=== PATIENT | male | born 1995 | race Caucasian/White ===

== ENCOUNTER 2019-02-27 12:53 | Emergency (ER) | payer OTHER ==
[~2019-02-27] VITALS: Ht 177.8 cm; Wt 127.0 kg
--- NOTE | 2019-02-27 13:10 | NUR ---
pt assessed, c/o dysuria and cloudy urine x 1 day, denies fevers or new sexual contacts. Pt report he also has had RLQ pain x 3 days with associated nausea. Denies vomiting or diarrhea. NAD. Ambulatory. Will cont to monitor
[2019-02-27] MEDS ORDERED: KETOROLAC 30 MG/1 ML ONE (13:15)
[2019-02-27 13:27] LABS: MICROSCOPIC NOT IND
[2019-02-27] MEDS ORDERED: KETOROLAC 30 MG/1 ML IM ONE (13:30)
[2019-02-27 13:31] LABS: CULTURE INDICATED? NO
[2019-02-27 13:32] LABS: BASOPHILS # (AUTO) 0.02 x10^3/uL (0-0.1); BASOPHILS % (AUTO) 0 % (0-1); EOSINOPHILS # (AUTO) 0.07 x10^3/uL (0-0.4); EOSINOPHILS % (AUTO) 1 % (1-7); LYMPHOCYTES # (AUTO) 2.08 x10^3/uL (1-3.4); LYMPHOCYTES % (AUTO) 28 % (22-44); MD NO; MEAN CORPUSCULAR HEMOGLOBIN 28.8 pg (27.5-34.5); MEAN CORPUSCULAR HGB CONC 32.8 g/dL (33.2-36.2); MEAN CORPUSCULAR VOLUME 87.8 fL (81-97); MEAN PLATELET VOLUME 9.7 fL (7.4-10.4); MONOCYTES # (AUTO) 0.55 x10^3/uL (0.2-0.8); MONOCYTES % (AUTO) 7 % (2-9); NEUTROPHILS # (AUTO) 4.76 x10^3/uL (1.8-6.8); NEUTROPHILS % (AUTO) 64 % (42-75); PLATELET COUNT 281 x10^3/uL (130-400); RED BLOOD COUNT 5.15 x10^6/uL (4.38-5.82); RED CELL DISTRIBUTION WIDTH 12.9 % (9.4-14.8)
[2019-02-27 13:43] LABS: ALBUMIN 4.3 g/dL (3.4-5.0); ANION GAP 5 mmol/L (5-15); CALCIUM 9.2 mg/dL (8.5-10.1); CHLORIDE 109 mmol/L (98-107)
[2019-02-27 13:47] LABS: ALANINE AMINOTRANSFERASE 58 U/L (12-78); ALKALINE PHOSPHATASE 80 U/L (45-117); BILIRUBIN,TOTAL 0.3 mg/dL (0.2-1.0); CREATININE 0.93 mg/dL (0.7-1.3); TOTAL PROTEIN 7.6 g/dL (6.4-8.2)
--- NOTE | 2019-02-27 14:40 | NUR ---
ROUNDED ON PT, NO NEEDS AT THIS TIME
[2019-02-27] MEDS ORDERED: CEFTRIAXONE 250 MG ONE (15:15)
[2019-02-27] MEDS ORDERED: AZITHROMYCIN 500 MG TABLET ONE (15:15)
[2019-02-27] MEDS ORDERED: AZITHROMYCIN 500 MG TABLET PO ONE (15:30)
[2019-02-27] MEDS ORDERED: CEFTRIAXONE 250 MG IM ONE (15:30)
[2019-02-27 15:33] VITALS: BP 135/75
== END 2019-02-27 15:36 | disposition home or self-care (01) ==
LOC: ED 13:21
DX: R10.31 Right lower quadrant pain (principal); R30.0 Dysuria
CPT/HCPCS: 36415; 74176; 80053; 81003; 85025; 87491; 87591; 96372; 99284; J0696; J1885